=== PATIENT | female | born 1975 | race Caucasian/White ===

== ENCOUNTER → 2016-12-13 | Outpatient (CLI) | payer MEDICAID ==
[~2016-12-13] MED LIST: FLEXERIL10 MG PO; ULTRAM PO; VOLTAREN75 MG PO
--- NOTE | ~2016-12-13 | MY26 ---
[facility] A Service of [facility] & [facility] RADIOLOGY TEXT RESULTS PATIENT: EDILBERTO WALKER LOCATION: [facility] : [birth year] UNIT #: [id number] AGE: [address]: ROSEANN MARTIN MD SEX: F ORDER DR: [id number] [facility] [address] [place], [place] [address] [id number] O MR#: [id number] Acc #: [id number] NAME: EDILBERTO WALKER : 1975 SEX: F STUDY DATE/TIME: 12/13/2016 8:36 UNIT: [facility] ROOM: STUDY DESCRIPTION: [facility] DIAGNOSTIC W/ CAD BILAT Attending Physician: Jorge Martin M.D. Referring Physician: Jorge Martin M.D. Ordering Physician: Jorge Martin M.D. Primary Care Physician: Jorge Martin M.D. MEDICAL IMAGING REPORT This report is preliminary unless electronic signature is present EXAM 1. Bilateral digital diagnostic mammogram with CAD and 2. Targeted bilateral breast ultrasounds, 12/13/2016. INDICATIONS 41-year-old female complaining of periareolar nipple pain for past 3-1/2 weeks. She denies a palpable abnormality. No personal or family history of breast cancer. History of breast augmentation in 2004. 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 TECHNIQUE CC, MLO, and implant-displaced views of the breasts were obtained and reviewed with an approved CAD device. COMPARISON 01/24/2016, 06/01/2014 FINDINGS Bilateral retropectoral saline implants are present. Mild contour abnormality of the right saline implant, unchanged dating back to 2013. Breast parenchyma is heterogeneously dense, degrading sensitivity of screening mammography. There is no new dominant nodule, mass, or suspicious cluster of microcalcifications. No new adenopathy. No mammographic correlate for the complaint of periareolar pain. Benign calcifications present. Targeted ultrasound was thereafter performed of both breasts. ULTRASOUND: The patient is initially scanned independently by the technologist, and then rescanned in presence. Imaging of the periareolar aspect of the right and left breasts is negative. No cystic or solid mass or persistent area of abnormal shadowing identified. Imaging findings are concordant with mammography. [facility]. [facility] A Service of [facility] RADIOLOGY TEXT RESULTS PATIENT: EDILBERTO WALKER LOCATION: [facility] : 71 UNIT #: [id number] AGE: [address]: ROSEANN MARTIN MD SEX: F ORDER DR: Absent new or worsening symptoms in either breast, clinical considerations should determine additional imaging at this point. Findings and recommendations were discussed with the patient, who voiced understanding and agreement. IMPRESSION Benign dense diagnostic mammogram. No mammographic or ultrasound correlate for the patient's complaint of periareolar nipple pain bilaterally. Clinical considerations to determine additional imaging at this time. See discussion above. Patients over the age of 40 are entered into a reminder system with target due date for the next mammogram. A result letter will also be sent to the patient. BIRADS: 2 Benign finding. Dictated by... Leobardo Shane M.D. THIS IS AN ELECTRONICALLY VERIFIED REPORT Leobardo Shane M.D. at 12/13/2016 4:01 PM Aaron TD: 12/13/2016 11:19 JOB #: [id number] MEDICAL IMAGING REPORT Page 1 of 1 COPY
--- NOTE | ~2016-12-13 | US17 ---
[facility] A Service of [facility] & [facility] RADIOLOGY TEXT RESULTS PATIENT: EDILBERTO WALKER LOCATION: [facility] : 71 UNIT #: [id number] AGE: [address]: ROSEANN MARTIN MD SEX: F ORDER DR: [id number] [facility] [address] [place], [place] [address] [id number] O MR#: [id number] Acc #: [id number] NAME: EDILBERTO WALKER : 1975 SEX: F STUDY DATE/TIME: 12/13/2016 9:53 UNIT: [facility] ROOM: STUDY DESCRIPTION: US Breast Bilateral Attending Physician: Jorge Martin M.D. Referring Physician: Jorge Martin M.D. Ordering Physician: Jorge Martin M.D. Primary Care Physician: Jorge Martin M.D. MEDICAL IMAGING REPORT This report is preliminary unless electronic signature is present EXAM Targeted bilateral breast ultrasound, 12/13/2016. FINDINGS Please see the report for diagnostic mammogram for results. BIRADS: 2 Benign finding. Dictated by... Leobardo Shane M.D. THIS IS AN ELECTRONICALLY VERIFIED REPORT Leobardo Shane M.D. at 12/18/2016 10:14 AM Aaron TD: 12/13/2016 11:39 JOB #: [id number] MEDICAL IMAGING REPORT Page 1 of 1 COPY
== END | disposition home or self-care (01) ==
LOC: CMAM 07:52
DX: N64.4 Mastodynia (principal); R92.8 Other abnormal and inconclusive findings on diagnostic imaging of breast
CPT/HCPCS: 76641; G0204